=== PATIENT | female | born 1990 | race Caucasian/White ===

== ENCOUNTER 2017-05-25 10:45 | Day surgery (SDC) | payer OTHER ==
[~2017-05-25] VITALS: Ht 162.6 cm; Wt 54.0 kg
[2017-05-25] VITALS (12 sets, daily range): BP systolic 127–142; BP diastolic 69–79; PULSE 74–95; RESP 11–20; Ht 162.6 cm; Wt 54.0 kg
[~2017-05-25 10:45] MED LIST: SEVOFLURANE 15 MIN ONE
[2017-05-25] MEDS ORDERED: SOD CHLORIDE 0.9% 1,000 ML IV SCH (11:00)
[2017-05-25] MEDS ORDERED: CEFAZOLIN 2 GM/50 ML (PMX) 50 ML IVPB ONE (11:00)
[2017-05-25] MEDS ORDERED: BUPIVACAINE 0.5% (SDV) 30 ML INJ ONE (12:07)
[2017-05-25] MEDS ORDERED: LIDOCAINE 2% (MDV) 20 ML INJ ONE (12:07)
[2017-05-25] MEDS ORDERED: MIDAZOLAM 1 MG/ML 2 ML INJ ONE (13:32)
[2017-05-25] MEDS ORDERED: FENTAnyl 50 MCG/ML VIAL ONE (13:32)
[2017-05-25] MEDS ORDERED: LIDOCAINE 2% (SDV) 5 ML INJ ONE (13:54)
[2017-05-25] MEDS ORDERED: PROPOFOL 20 ML ONE (13:54)
[2017-05-25] MEDS ORDERED: CEFAZOLIN 1 GM INJ ONE (13:54)
[2017-05-25] MEDS ORDERED: ONDANSETRON 4 MG INJ ONE (13:55)
[2017-05-25] MEDS ORDERED: HYDROCODONE/APAP (5/325) TAB PO ONE (14:00)
--- NOTE | 2017-05-25 14:01 | OPR ---
Date/Time of Note Date/Time of Note DATE: 05/25/17 TIME: 14:00 Operative Report Preoperative Diagnosis right arm mass Postoperative Diagnosis same Operation/Procedure Performed 1.excision of right arm mass 2 cm mass 2 cm incision 2. localized adjacent tissue transfer with the use of skin flaps with 4 sq cm defect 3. therapeutic injection of subcutaneous marcaine cpt code 43018 Surgeon: Verito THACKER Anesthesia: general Specimens right arm mass Complications: None Verito THACKER May 25, 2017 14:01
--- NOTE | 2017-05-25 14:53 | OPR ---
DATE OF OPERATION: 05/25/2017 INDICATION: This is a 26-year-old female with a painful right arm mass. She requests surgical excision. Risks, alternatives, benefits, and alternatives were discussed with the patient. Patient expresses understanding and consents to the operation. PREOPERATIVE DIAGNOSIS: Right arm mass. POSTOPERATIVE DIAGNOSIS: Right arm mass. OPERATION PERFORMED: 1. Excision of right arm mass with 2-cm size mass, and 2-cm size incision. 2. Localized adjacent tissue transfer with use of skin flaps with 4 square cm defect. 3. Therapeutic injection of subcutaneous Marcaine. CPT code 16548. SURGEON: Capri Ramírez MD SPECIMEN: Right arm mass. COMPLICATIONS: None. ANESTHESIA: General. OPERATIVE PROCEDURE: Patient was taken to the OR, prepped and draped in usual sterile fashion. Surgical time out was performed. IV antibiotics were given. Elliptical incision was made with a 15 blade circumferentially around the mass. Dissection cautery was carried down to the mass which was circumferentially excised. There was good hemostasis. However, due to large tissue defect localized adjacent tissue transfer with use of skin flaps was performed. Multilayered closure with interrupted 3-0 Vicryl and running 4-0 Monocryl. Subcutaneous therapeutic injection of Marcaine throughout the incision site. Dermabond was applied. Dictated By: Amy Ballard /[email or web address] /Document#: [id number]
== END 2017-05-25 18:58 | disposition home or self-care (01) ==
LOC: SDS 10:45
PROVIDERS: ATTEND Surgery
DX: L72.11 Pilar cyst (principal)
CPT/HCPCS: 14020; 84703; 88307; J0690; J2250; J2405; J3010; Z7512; Z7610